=== PATIENT | male | born 1930 | race Two or more races ===

== ENCOUNTER 2016-05-03 13:49 | Emergency (ER) | payer MEDICARE, MEDICAID ==
--- NOTE | 2016-05-03 14:29 | EDM.PDOC ---
ED HPI GENERAL MEDICAL PROBLEM - General Chief Complaint: General Stated Complaint: ASSEMENT Time Seen by Provider: 05/03/16 14:17 Source of Information: Reports: Old records, Other ([facility] staff) History Limitations: Reports: Other (Demented patient who speaks only Citizen [place]) - History of Present Illness INITIAL COMMENTS - FREE TEXT/NARRATIVE: 85 yo male sent from our [facility] to the ED for review of a possible issue with TB. He was recently in our acute care side at [facility] for pneumonia/CVA/AR. After hospitalization he was admitted to our [facility]. During his hospitalization he had a + TB skin test followed by an equivocal Quantiferon blood test. CXR's do not show anything suspicious for TB. This past weekend he was started on INH 300 mg qd with a 9 mos. course anticipated after a phone conversation with a specialist in [place]. Pharmacy has concerns about whether or not this patient can safely take INH due to a 03/20/16 AST of 104, although at that time the ALT and bilirubin were normal. As best anyone can tell Daniel has not had an obvious symptoms of active TB. Family states they have some recollection of a dx of TB in the past for this patient, but are not able to share any specifics about where, when or if he was diagnosed/treated. Onset: unknown/unsure Duration: Other (Unknown) Location: Reports: other (No symptoms) Quality: Reports: Other (none) Context: Reports: Other (Recent + TB skin test triggered current investigations/ concerns.) Associated Symptoms: Reports: denies other symptoms (Staff denies noting any sx' s. He is not able to offer significant history.) Treatments CALL CENTER ASSISTANT: Reports: Other (see below) (Started on INH 05/01/16.) - Related Data Allergies Allergy/AdvReac Type Severity Reaction Status Date / Time No Known Allergies Allergy Verified 05/03/16 14:06 Home Meds: Home Meds Lisinopril [Prinivil] 2.5 mg PO DAILY #15 tablet 12/02/14 [Rx] Ascorbic Acid [Vitamin C] 1,000 mg PO DAILY 03/24/16 [History] Aspirin [Ecotrin] 81 mg PO DAILY 03/24/16 [History] Cholecalciferol (Vitamin D3) [Vitamin D3] 4,000 units PO DAILY 03/24/16 [History ] Cyanocobalamin (Vitamin B-12) [Vitamin B-12] 1,000 mcg PO DAILY 03/24/16 [ History] Clopidogrel [Plavix] 75 mg PO DAILY #30 tablet 04/01/16 [Rx] Acetaminophen [Acetaminophen ER] 650 mg PO ATDISCHARGE PRN 05/03/16 [History] Dextran 70/Hypromellose [Artificial Tears] 2 drop EYEBOTH BID 05/03/16 [History] Eucalyptus/Menthol [Cough Drops] 1 tab PO ASDIRECTED PRN 05/03/16 [History] Gabapentin [Neurontin] 100 mg PO BEDTIME 05/03/16 [History] Isoniazid 300 mg PO DAILY 05/03/16 [History] Loperamide [Imodium] 1 cap PO ASDIRECTED PRN 05/03/16 [History] Magnesium Hydroxide [Milk of Magnesia] 30 ml PO ASDIRECTED PRN 05/03/16 [History ] Melatonin 5 mg PO BEDTIME 05/03/16 [History] Metoprolol Tartrate 12.5 mg PO BID 05/03/16 [History] QUEtiapine Fumarate [Seroquel Xr] 50 mg PO ACDINNER 05/03/16 [History] QUEtiapine Fumarate [Seroquel] 12.5 mg PO DAILY 05/03/16 [History] Vit B6/Mag Cit & Ox/Potass Cit [Theralith XR] 1 tab PO BEDTIME 05/03/16 [History ] guaiFENesin [Robitussin] 2 tsp PO QID PRN 05/03/16 [History] Past Medical History HEENT History: Reports: Cataract, Impaired vision Cardiovascular History: Reports: Heart murmur, Hypertension, AR, Other (see below) Other Cardiovascular History: has hx of blocked arteries daughter states can do nothing for it as he would not do well after surgury pt has hx of stroke Respiratory History: Reports: COPD Genitourinary History: Reports: Prostate disorder, Other (see below) Other Genitourinary History: prostate cancer, daughter states the PCP has mentioned that he has protein in his urine Neurological History: Reports: CVA Other Neuro History: daughter states stroke in 2001 that left his mouth and fingers numb, besides the dementia 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 Psychiatric History: Reports: Dementia Oncologic (Cancer) History: Reports: Prostate - Infectious Disease History Infectious Disease History: Reports: Chicken pox, Measles - Past Surgical History HEENT Surgical History: Reports: Cataract surgery Other HEENT Surgeries/Procedures: both eyes Cardiovascular Surgical History: Reports: Other (see below) Other Cardiovascular Surgeries/Procedures: daughter describes what was probably a right carotid endarterectomy some time after his stroke in 2001 Respiratory Surgical History: Reports: None Neurological Surgical History: Reports: None Social & Family History - Family History Family Medical History: Noncontributory - Tobacco Use Smoking Status *Q: Former Smoker Years of Tobacco use: 60 Packs/Tins Daily: 1 Used Tobacco, but Quit: Yes Month Tobacco Last Used: quit 7 years ago Second Hand Smoke Exposure: No - Caffeine Use Caffeine Use: Reports: None - Alcohol Use Days Per Week of Alcohol Use: 0 - Recreational Drug Use Recreational Drug Use: No ED ROS GENERAL - Review of Systems Review Of Systems: Unable To Obtain Constitutional: Reports: ROS unobtainable ED EXAM, GENERAL - Physical Exam Exam: See Below Exam Limited By: No limitations General Appearance: alert, WD/WN, no apparent distress Eye Exam: bilateral eye: normal inspection Ears: normal external exam, normal canal, other (cerumen impactions bilaterally) Ear Exam: bilateral ear: auricle normal, canal normal Nose: normal inspection, normal mucosa, no blood Throat/Mouth: Normal inspection, Normal lips, Normal teeth, Normal oropharynx, Normal voice, No airway compromise Head: atraumatic, normocephalic Neck: normal inspection, supple, non-tender Respiratory/Chest: no respiratory distress, lungs clear, normal breath sounds, no accessory muscle use Cardiovascular: regular rate, rhythm, no edema, systolic murmur GI/Abdominal: normal bowel sounds, soft, non tender, no distention (Male) Exam: Other (indwelling sanches catheter present) Back Exam: normal inspection Extremities: normal inspection, normal range of motion, non-tender, no pedal edema Neurological: alert, CN II-XII intact, no motor/sensory deficits Psychiatric: normal affect, normal mood Skin Exam: Warm, Dry, Intact, Normal color, No rash Lymphatic: no adenopathy EKG INTERPRETATION EKG Date: 05/03/16 Time: 15:15 Rhythm: NSR Rate (beats/min): 74 [place]: LAD-left axis deviation P-wave: present QRS: normal ST-T: normal QT: normal Comparison: change from previous EKG (T waves slightly more peaked in V3 and V4 , otherwise no change.) Course - Vital Signs Text/Narrative:: Case discussed with Dr. Stanley of [facility], OK to continue INH as currently with q 2 mos LFT checks. 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 OK to return on this regimen to the [facility] without respiratory precautions. NS 1000 ml IV, kayexalate 15 gm po Case discussed with Dr. Falcon @ 407 Last Recorded V/S: Last Vital Signs Temp 36.2 C 05/03/16 13:50 Pulse 78 05/03/16 13:50 Resp 18 05/03/16 13:50 BP 95/45 L 05/03/16 13:50 Pulse Ox 99 05/03/16 13:50 - Orders/Labs/Meds Orders: Active Orders 24 hr Category Date Time Status EKG Documentation Completion [RC] ASDIRECTED Care 05/03/16 15:01 Active Sodium Chloride 0.9% [Normal Saline] 1,000 ml Med 05/03/16 14:52 Active IV .BOLUS Sodium Polystyrene Sulfonate [Kayexalate] Med 05/03/16 15:42 Once 15 gm PO ONETIME ONE EKG 12 Lead [EK] Routine Ther 05/03/16 15:01 Ordered Medication Orders Sodium Chloride (Normal Saline) 1,000 mls @ 999 mls/hr IV .BOLUS ONE Stop: 05/03/16 15:52 Last Admin: 05/03/16 15:27 Dose: 999 mls/hr Labs: Laboratory Tests 05/03/16 Range/Units 14:15 Sodium 136 (135-145) mmol/L Potassium 6.1 H D (3.5-5.3) mmol/L Chloride 103 (100-110) mmol/L Carbon Dioxide 25 (23-29) mmol/L BUN 31 H D (8-23) mg/dL Creatinine 1.7 H (0.6-1.3) mg/dL Est Cr Clr Drug Dosing 30.06 mL/min Estimated GFR (MDRD) 39 L (>60) BUN/Creatinine Ratio 18.2 (9-20) Glucose 127 H (80-116) mg/dL Calcium 9.2 (8.6-10.2) mg/dL Total Bilirubin 0.3 (0.1-1.3) mg/dL AST 19 D (5-27) IU/L ALT 8 L D (14-26) IU/L Alkaline Phosphatase 84 (56-112) IU/L Total Protein 7.0 (6.0-8.0) g/dL Albumin 3.0 L (3.2-4.6) g/dL Globulin 4.0 g/dL Albumin/Globulin Ratio 0.8 Meds: Medications Generic Name Dose Route Start Last Admin Trade Name Freq PRN Reason Stop Dose Admin Sodium Chloride 1,000 mls @ 999 mls/hr 05/03/16 14:52 05/03/16 15:27 Normal Saline IV 05/03/16 15:52 999 mls/hr .BOLUS ONE Administration Departure - Departure Time of Disposition: 16:35 Disposition: Home, Self-Care 01 Condition: fair 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, Hyperkalemia, Mild dehydration Referrals: Tony Anderson MD [Primary Care Provider] - - My Orders Last 24 Hours: My Active Orders 05/03/16 14:52 Sodium Chloride 0.9% [Normal Saline] 1,000 ml IV .BOLUS 05/03/16 15:01 EKG Documentation Completion [RC] ASDIRECTED EKG 12 Lead [EK] Routine 05/03/16 15:42 Sodium Polystyrene Sulfonate [Kayexalate] 15 gm PO ONETIME ONE - Assessment/Plan Last 24 Hours: My Active Orders 05/03/16 14:52 Sodium Chloride 0.9% [Normal Saline] 1,000 ml IV .BOLUS 05/03/16 15:01 EKG Documentation Completion [RC] ASDIRECTED EKG 12 Lead [EK] Routine 05/03/16 15:42 Sodium Polystyrene Sulfonate [Kayexalate] 15 gm PO ONETIME ONE
[2016-05-03] MEDS ORDERED: Sodium Chloride 0.9% 1,000 ML IV ONE (14:52)
[2016-05-03] MEDS ORDERED: Sodium Polystyrene Sulfonate 15 GM/60 ML Susp 60 ML Bot PO ONE (15:42)
[2016-05-03 16:46] VITALS: BP 142/50
== END 2016-05-03 16:45 ==
LOC: FB.ED 13:49
DX: E87.5 Hyperkalemia (principal); E86.0 Dehydration; R76.11 Nonspecific reaction to tuberculin skin test without active tuberculosis; R01.1 Cardiac murmur, unspecified; I10 Essential (primary) hypertension; I25.2 Old myocardial infarction; J44.9 Chronic obstructive pulmonary disease, unspecified; F03.90 Unspecified dementia, unspecified severity, without behavioral disturbance, psychotic disturbance, mood disturbance, and anxiety; Z87.891 Personal history of nicotine dependence; Z79.82 Long term (current) use of aspirin; Z79.899 Other long term (current) drug therapy; Z86.73 Personal history of transient ischemic attack (TIA), and cerebral infarction without residual deficits; Z98.49 Cataract extraction status, unspecified eye
CPT/HCPCS: 36415; 80053; 93005; 96360; 99283; A9270; J7040; 99284

== ENCOUNTER 2016-05-21 15:03 | Emergency (ER) | payer MEDICARE, MEDICAID ==
[2016-05-21] MEDS ORDERED: Sodium Polystyrene Sulfonate 15 GM/60 ML Susp 60 ML Bot PO ONE (15:18)
[2016-05-21] MEDS ORDERED: Insulin Regular, Human 10 UNIT in Dextrose 10% in Water 499.9 ML SUBCUT SCH ×2 (15:30)
[2016-05-21] MEDS ORDERED: WATER IV SCH ×2 (16:17)
[2016-05-21] MEDS ORDERED: INSULIN REGULAR IV SCH ×2 (16:17)
[2016-05-21] MEDS ORDERED: HUMAN IV SCH ×2 (16:17)
[2016-05-21] MEDS ORDERED: DEXTROSE 10% IV SCH ×2 (16:17)
[2016-05-21] MEDS ORDERED: Sodium Bicarbonate 8.4% 50 MEQ/50 ML Syringe IVPUSH ONE (19:23)
[2016-05-21] MEDS ORDERED: Calcium Chloride 10% 1 GM/10 ML Syringe IVPUSH ONE ×2 (19:24→19:45)
[2016-05-21] MEDS ORDERED: Sodium Chloride 0.9% 10 ML Syringe FLUSH PRN (19:44)
[2016-05-21 20:04] VITALS: BP 138/67
--- NOTE | 2016-05-28 10:39 | ER ---
DATE SEEN: 05/21/2016 HISTORY OF PRESENT ILLNESS: This detention patient recently, as documented by myself, had a CVA. He is now in recovery. He has moderate expressive aphasia, but not receptive aphasia. He has mitral and aortic valve disease, had previous non-STEMI, hypertension, acute renal failure, more recently documented latent tuberculosis and was started on INH daily plus pyridoxine for a total of 6 months per the Infectious Disease consultation, Carlin Danielson ID. The detention called me today and told me that the potassium was elevated. It was in the 6.7 range. Consequently, Kayexalate was prescribed, 15 g orally. He also received a dose of 10 units of regular insulin in 200 mL of D10W. This was given over an hour. His potassium came down to 5.7. Orders then written for Kayexalate 15 g q.i.d. for 3 days with a recheck of BMP on 05/22/2016 and 05/24/2016. The detention has been informed. PHYSICAL EXAMINATION: GENERAL: He is minimally conversant because he has expressive aphasia. He understands. He does not have receptive aphasia. VITAL SIGNS: See nurse's note. HEENT: PERRLA intact. Pharynx is negative. Hyperactive reflexes noted. NEUROLOGIC: Cranial nerves 2 through 12 intact. There is no facial droop. LUNGS: Clear to auscultation. HEART: S1, S2. No murmur. ABDOMEN: Soft, nontender. EXTREMITIES: Without edema or abnormality. ASSESSMENT: 1. Hyperkalemia. 2. Stage 3 renal failure with a 36 GFR, BUN 45, creatinine 1.8, and hyperkalemia, but the potassium down at 5.4. /[id number] LIBRA/JIL
== END 2016-05-21 20:25 ==
LOC: FB.ED 15:03
DX: E87.5 Hyperkalemia (principal); N19 Unspecified kidney failure; I25.2 Old myocardial infarction; I10 Essential (primary) hypertension
CPT/HCPCS: 36415; 80048; 80053; 84132; 84153; 85025; 96365; 96375; 99284; A9270; J1815; J7050; 99283